=== PATIENT | female | born 1995 | race Two or more races ===

== ENCOUNTER 2018-12-28 16:50 | Emergency (ER) | payer OTHER ==
[~2018-12-28] VITALS: Ht 167.6 cm; Wt 100.0 kg
[2018-12-28 17:00] VITALS: BP 137/80
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
[2018-12-28] MEDS ORDERED: HYDR-3165 PO (18:29)
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
[2018-12-28] MEDS ORDERED: HYDROcodone/APAP 5/325MG 1 TAB TABLET PO ONE (18:30)
== END 2018-12-28 18:38 | disposition home or self-care (01) ==
LOC: ER 16:50
DX: S20.211A Contusion of right front wall of thorax, initial encounter (principal); M25.562 Pain in left knee; M25.561 Pain in right knee; M25.511 Pain in right shoulder; M54.2 Cervicalgia; V43.52XA Car driver injured in collision with other type car in traffic accident, initial encounter; Y93.I9 Activity, other involving external motion; Y92.488 Other paved roadways as the place of occurrence of the external cause; Y99.8 Other external cause status
CPT/HCPCS: 73030; 99284